=== PATIENT | male | born 1940 | race Caucasian/White ===

== ENCOUNTER 2023-12-21 15:14 | Outpatient (AMB) | payer MEDICARE, SELFPAY ==
--- NOTE | 2023-12-21 15:19 | A.OFFVIS_ITS ---
Intake Visit Reasons: Retention/BPH/Hematuria/Scrotal Swelling Intake Note: Patient is present for RETENTION/BPH/HEMATURIA,SCROTAL SWELLING Urology Medication:NONE Antibiotic Allergy:NONE Blood Thinner:NONE Metal Fabrication Supervisor Required: No Allergies No Known Allergies Allergy (Verified 12/21/23 15:20) HPI Comments Details: Fahad is a pleasant male. He is a patient of . 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 On exam has significant scarring of bilateral epididymis Does report prior trauma in his youth Testicles intact on exam without deformity to overall shape Would operate and debulk scar if he is sufficiently bothered Gross hematuria Apparently has been diagnosed with friable prostate in the past UA positive today Reports component of dysuria Plan for urine culture Start finasteride 4 week follow-up cystoscopy [facility] Medical History (Updated 12/21/23 @ 15:57 by Edward Bardales MD) Pure hypercholesterolemia, unspecified HTN (hypertension) Dysuria Acute osteomyelitis of spine Back pain Enlarged prostate Gross hematuria BPH (benign prostatic hyperplasia) Depression Review of Systems Const Denies chills and Denies fever(s) Card Reports no additional complaints and Denies syncope Resp Denies cough GI Denies abdominal pain and Denies heartburn Reports as per HPI and Denies change in libido Neuro Denies syncope Psych Denies change in libido Endo Denies change in libido Physical Exam Const General: cooperative, healthy appearing, comfortable and no acute distress Orientation/consciousness: patient oriented x3 HEENT Face and sinus: Yes normal facial exam Mouth: moist mucous membranes Neck Neck: Yes normal visual inspection, Yes full ROM and Yes trachea midline Chest Chest palpation & inspection: normal inspection of the chest Resp Effort & Inspection: normal respiratory effort, able to speak in complete sentences and no respiratory distress GI Inspection: Yes normal to inspection Back/Spine/Pelvis Cervical Spine: normal cervical lordosis Thoracic/Lumbar Spine: thoracic and lumbar spine normal to inspection Skin General skin exam: no rashes or lesions noted Neuro General: patient oriented x3, gait normal, tone normal and moves all extremities Extrem General: Yes normal to inspection and Yes capillary refill normal Results AMB Urinalysis, Automated UA Leukoctes 500 Bang/uL Last Edit by JACQUES Contreras on 12/21/23 15:37 UA Nitrite Negative Last Edit by JACQUES Contreras on 12/21/23 15:37 UA Urobilinogen 0.2 mg/dL Last Edit by JACQUES Contreras on 12/21/23 15:3 7 UA Protein 30 mg/dL Last Edit by JACQUES Contreras on 12/21/23 15:37 UA pH 6.0 Last Edit by Oren Jefferson CCM on 12/21/23 15:37 UA Blood 80 Nahid/uL Last Edit by Oren Jefferson [facility] on 12/21/23 15:37 UA Specific [place] 1.015 Last Edit by Oren Jefferson [facility] on 12/21/23 15: 37 UA Ketone Negative Last Edit by JACQUES Contreras on 12/21/23 15:37 UA Bilirubin 0 mg/dL Last Edit by JACQUES Contreras on 12/21/23 15:37 UA Glucose 0 mg/dL Last Edit by Oren Jefferson [facility] on 12/21/23 15:37 Results Reviewed Results Reviewed: Laboratory Last Values Urine pH (Auto) 6.0 12/21/23 15:36 Specific [place] (Auto) 1.015 12/21/23 15:36 Urine Protein (Auto) 30 mg/dL 12/21/23 15:36 Glucose (UA)(Auto) 0 mg/dL 12/21/23 15:36 Urine Ketones (Auto) Negative 12/21/23 15:36 Urine Blood (Auto) 80 Nahid/uL 12/21/23 15:36 Urine Nitrite (Auto) Negative 12/21/23 15:36 Urine Bilirubin (Auto) 0 mg/dL 12/21/23 15:36 Urine Urobilinogen (Auto) 0.2 mg/dL 12/21/23 15:36 Leukocyte Esterase (Auto) 500 Bang/uL 12/21/23 15:36 Assessment & Plan Assessment & Plan (1) Epididymitis: Code(s): N45.1 - Epididymitis Category: Medical (2) BPH (benign prostatic hyperplasia): Code(s): N40.0 - Benign prostatic hyperplasia without lower urinary tract symptoms Category: Medical (3) Gross hematuria: Code(s): R31.0 - Gross hematuria Category: Medical Plan Four week follow-up cysto Orders: Orders AMB Urinalysis Automated Today Z13.9 - Encounter for screening, unspecified Urine Culture Today N39.0 - Urinary tract infection, site not specified Medications: New finasteride 5 mg PO DAILY 90 days 90 tabs 1RF N13.8 - Other obstructive and reflux uropathy, N40.1 - Benign prostatic hyperplasia with lower urinary tract symptoms, R31.0 - Gross hematuria, R33.9 - Retention of urine, unspecified Patient Instructions: Imaging studies, laboratory and physical exam results were discussed and reviewed in detail. No major barriers to patient understanding were identified. An opportunity to ask questions regarding the treatment plan was provided. All questions were answered. The patient expressed understanding and agreement with the above treatment plan. The patient is aware they should contact our office by phone for worsening of their current condition or the appearance of new urologic symptoms. Compliance is encouraged with any medications and followup testing that is ordered. It is a privilege to participate in the urologic care of your patient. If you have any questions or concerns regarding treatment for the above conditions, or other urologic issues, please do not hesitate to contact me. The office tele phone contact is [phone]. This note is constructed using voice recognition software. While every effort has been made to ensure accuracy chemical manager errors may have been included. Yours sincerely, Dr Edward Bardales MD, [facility] - Urology Providers of Expert, Compassionate Care for the Genitourinary System Coding Level of Care Code New Pt Level 4 (57359) Diagnoses Epididymitis N45.1 BPH (benign prostatic hyperplasia) N40.0 Gross hematuria R31.0
== END 2023-12-21 16:09 | disposition home or self-care (01) ==
LOC: HO.HUSH 15:15
PROVIDERS: PCP Nurse Practitioner Family; Visit Provider Urology
DX: N45.1 Epididymitis (principal); N40.0 Benign prostatic hyperplasia without lower urinary tract symptoms; R31.0 Gross hematuria; Z13.9 Encounter for screening, unspecified
CPT/HCPCS: 99204

== ENCOUNTER 2023-12-21 15:14 | Outpatient (REF) | payer MEDICARE, SELFPAY | END 2023-12-21 15:15 | disposition home or self-care (01) | LOC: HO.LAB 15:14 | PROVIDERS: PCP Nurse Practitioner Family; Visit Provider Urology | DX: R39.0 Extravasation of urine (principal); N45.1 Epididymitis; R31.0 Gross hematuria; N40.0 Benign prostatic hyperplasia without lower urinary tract symptoms; N13.8 Other obstructive and reflux uropathy; R33.9 Retention of urine, unspecified; Z79.899 Other long term (current) drug therapy | CPT/HCPCS: 81003; 87086; 99202 ==

== ENCOUNTER 2024-01-25 13:55 | Outpatient (AMB) | payer MEDICARE, SELFPAY ==
--- NOTE | 2024-01-25 14:07 | A.OFFVIS_ITS ---
Intake Visit Reasons: cysto Intake Note: Patient is present for Cystoscopy Urology Medication:FINASTERIDE Antibiotic Allergy:NONE Blood Thinner:NONE Lot:[id number] Exp:12/18/26 Cashier Gambling Required: No Allergies No Known Allergies Allergy (Verified 01/25/24 14:09) HPI Comments Details: Fahad is a pleasant male. He is a patient of . 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 On exam has significant scarring of bilateral epididymis Does report prior trauma in his youth Testicles intact on exam without deformity to overall shape Would operate and debulk scar if he is sufficiently bothered Gross hematuria Apparently has been diagnosed with friable prostate in the past UA positive prior evaluation Reports component of dysuria [facility] Medical History (Updated 12/21/23 @ 15:57 by Edward Bardales MD) Pure hypercholesterolemia, unspecified HTN (hypertension) Dysuria Acute osteomyelitis of spine Back pain Enlarged prostate Gross hematuria BPH (benign prostatic hyperplasia) Depression Review of Systems Const Denies chills and Denies fever(s) Card Reports no additional complaints and Denies syncope Resp Denies cough GI Denies abdominal pain and Denies heartburn Reports as per HPI and Denies change in libido Neuro Denies syncope Psych Denies change in libido Endo Denies change in libido Physical Exam Const General: cooperative, healthy appearing, comfortable and no acute distress Orientation/consciousness: patient oriented x3 HEENT Face and sinus: Yes normal facial exam Mouth: moist mucous membranes Neck Neck: Yes normal visual inspection, Yes full ROM and Yes trachea midline Chest Chest palpation & inspection: normal inspection of the chest Resp Effort & Inspection: normal respiratory effort, able to speak in complete sentences and no respiratory distress GI Inspection: Yes normal to inspection Back/Spine/Pelvis Cervical Spine: normal cervical lordosis Thoracic/Lumbar Spine: thoracic and lumbar spine normal to inspection Skin General skin exam: no rashes or lesions noted Neuro General: patient oriented x3, gait normal, tone normal and moves all extremities Extrem General: Yes normal to inspection and Yes capillary refill normal Office Procedures Cystoscopy Consent Discussed risk and benefit or proposed procedure with the patient. Information consent for procedure given to the patient. Discussed technical aspects, risks, benefits and alternatives in full. Addressed all of the patient's questions and concerns regarding the procedure. The patient demonstrated knowledge and understanding. They wish to proceed with this procedure. Preparation The patient was prepped in the usual manner. A doctorate of chiropractic was present and in the room. Genitalia was prepped with betadine solution in a sterile manner. Lidocaine Jelly 2% was placed into the urethra and 16Fr flexible Olympus cystoscope was inserted into the meatus after adequate lubrication. Procedure Cystoscopy performed using a disposable Urovue digital 16 Syriac cystoscope. 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 Bladder Tumor - [id number] DISPOSABLE SCOPE URO-G FLEXIBLE SCOPE Procedure code (CPT) selection complete Office Meds lidocaine HCl 2 % mucosal jelly in applicator Performing Provider: Edward Bardales MD [facility] [place] [facility] [place] Administered by: Edward Bardales MD on 01/25/24 14:59 Dose Route Admin Location Dispensed Lot Number Expiration Date [facility] Columnist 10 mL intra-urethral 10 mL Results AMB Urinalysis, Automated UA Leukoctes 500 Bang/uL Last Edit by JACQUES Contreras on 01/25/24 14:20 UA Nitrite Negative Last Edit by JACQUES Contreras on 01/25/24 14:20 UA Urobilinogen 0.2 mg/dL Last Edit by JACQUES Contreras on 01/25/24 14:2 0 UA Protein 15 mg/dL Last Edit by JACQUES Contreras on 01/25/24 14:20 UA pH 7.0 Last Edit by JACQUES Contreras on 01/25/24 14:20 UA Blood 10 Nahid/uL Last Edit by JACQUES Contreras on 01/25/24 14:20 UA Specific [place] 1.010 Last Edit by JACQUES Contreras on 01/25/24 14: 20 UA Ketone Negative Last Edit by JACQUES Contreras on 01/25/24 14:20 UA Bilirubin 0 mg/dL Last Edit by JACQUES Contreras on 01/25/24 14:20 UA Glucose 0 mg/dL Last Edit by JACQUES Contreras on 01/25/24 14:20 Results Reviewed Results Reviewed: Laboratory Last Values Urine pH (Auto) 7.0 01/25/24 14:19 Specific [place] (Auto) 1.010 01/25/24 14:19 Urine Protein (Auto) 15 mg/dL 01/25/24 14:19 Glucose (UA)(Auto) 0 mg/dL 01/25/24 14:19 Urine Ketones (Auto) Negative 01/25/24 14:19 Urine Blood (Auto) 10 Nahid/uL 01/25/24 14:19 Urine Nitrite (Auto) Negative 01/25/24 14:19 Urine Bilirubin (Auto) 0 mg/dL 01/25/24 14:19 Urine Urobilinogen (Auto) 0.2 mg/dL 01/25/24 14:19 Leukocyte Esterase (Auto) 500 Bang/uL 01/25/24 14:19 Assessment & Plan Assessment & Plan (1) BPH (benign prostatic hyperplasia): Code(s): N40.0 - Benign prostatic hyperplasia without lower urinary tract symptoms Category: Medical (2) Gross hematuria: Code(s): R31.0 - Gross hematuria Category: Medical Plan Six-month follow-up office Orders: Orders AMB Urinalysis Automated Today Z13.9 - Encounter for screening, unspecified AMB Cystoscopy Today N40.0 - Benign prostatic hyperplasia without lower urinary tract symptoms Medications: New sulfamethoxazole-trimethoprim 400-80 mg (Bactrim) 1 tab PO BEDTIME 90 days 90 tabs 0RF N39.0 - Urinary tract infection, site not specified, N40.0 - Benign prostatic hyperplasia without lower urinary tract symptoms lidocaine HCl 2% 10 mL intra-urethral ONCE 10 mL 0RF N40.0 - Benign prostatic hyperplasia without lower urinary tract symptoms Patient Instructions: Imaging studies, laboratory and physical exam results were discussed and reviewed in detail. No major barriers to patient understanding were identified. An opportunity to ask questions regarding the treatment plan was provided. All questions were answered. The patient expressed understanding and agreement with the above treatment plan. The patient is aware they should contact our office by phone for worsening of their current condition or the appearance of new urologic symptoms. Compliance is encouraged with any medications and followup testing that is ordered. It is a privilege to participate in the urologic care of your patient. If you have any questions or concerns regarding treatment for the above conditions, or other urologic issues, please do not hesitate to contact me. The office telephone contact is [phone]. This note is constructed using voice recognition software. While every effort has been made to ensure accuracy emergency room registered nurse errors may have been included. Yours sincerely, Dr Edward Bardales MD, [facility] - Urology Providers of Expert, Compassionate Care for the Genitourinary System Coding Level of Care Code Est Pt Level 4 (19609) Diagnoses BPH (benign prostatic hyperplasia) N40.0 Gross hematuria R31.0 CPT Codes Cystoscopy - CPT: 27199-Eluoehbnfy ([id number])
--- OUTSIDE RECORDS SUMMARY | 2024-01-26 02:38 | XMS_ITS ---
Author Name [facility] Organization Unknown Assessment and Plan ID Update Date Source Alert Text [employer] - [id number] 30 12/29/2021 [employer] - [id number] COVID Vaccination: This patient has received the PFR, COV-19,mRNA,LNP-S,PF,30-0. 3,Bivalent vaccination on 12/29/2021 with lot number [id number] at [facility]. [employer] - [id number] 08/24/2021 [employer] - [id number] COVID Vaccination: This patient has received the PFR, COV-19,mRNA,LNP-S,PF,30-0. 3,vinay-sucrose vaccination on 08/24/2021 with lot number [id number] at [facility]. [employer] - [id number] [phone] 11/25/2020 [employer] - [id number] COVID Vaccination: This patient has received the PFR, COVID-19, mRNA, LNP-S, PF, 0.3mL vaccination on 11/25/2020 with lot number [id number] at [facility]. [employer] - [id number] [phone] 04/01/2020 [employer] - [id number] COVID Vaccination: This patient has received the PFR, COVID-19, mRNA, LNP-S, PF, 0.3mL vaccination on 04/01/2020 with lot number [id number] at [facility]. [employer] - [id number] [phone] 03/06/2020 [employer] - [id number] COVID Vaccination: This patient has received the PFR, COVID-19, mRNA, LNP-S, PF, 0.3mL vaccination on 03/06/2020 with lot number [id number] at [facility].
== END 2024-01-25 15:27 | disposition home or self-care (01) ==
PROVIDERS: PCP Nurse Practitioner Family; Visit Provider Urology
DX: N40.0 Benign prostatic hyperplasia without lower urinary tract symptoms (principal); R31.0 Gross hematuria; Z13.9 Encounter for screening, unspecified
CPT/HCPCS: 52000; 99214

== ENCOUNTER → 2024-01-25 13:55 | Outpatient (BNVA) | payer MEDICARE, SELFPAY | PROVIDERS: PCP Nurse Practitioner Family; Visit Provider Urology | DX: N40.0 Benign prostatic hyperplasia without lower urinary tract symptoms (principal); R31.0 Gross hematuria; N39.0 Urinary tract infection, site not specified | CPT/HCPCS: 52000; 81003; 99212 ==

== ENCOUNTER 2024-08-10 13:47 | Outpatient (AMB) | payer MEDICARE, SELFPAY ==
--- NOTE | 2024-08-10 13:54 | MHC.OFFVIS ---
Intake Visit Reasons: 6m follow up/ PVR Intake Note: Patient is present for 6M/PVR Urology Medication:FINASTERIDE Antibiotic Allergy:NONE Blood Thinner:NONE Todays PVR:0ML'S Carrier Loader Required: No Allergies No Known Allergies Allergy (Verified 08/10/24 13:55) HPI Comments Details: Fahad is a pleasant male. He is a patient of . 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 On exam has significant scarring of bilateral epididymis Does report prior trauma in his youth Testicles intact on exam without deformity to overall shape Would operate and debulk scar if he is sufficiently bothered Gross hematuria Apparently has been diagnosed with friable prostate in the past UA positive prior evaluation Reports component of dysuria [facility] Medical History (Updated 12/21/23 @ 15:57 by Edward Bardales MD) Pure hypercholesterolemia, unspecified HTN (hypertension) Dysuria Acute osteomyelitis of spine Back pain Enlarged prostate Gross hematuria BPH (benign prostatic hyperplasia) Depression Review of Systems Const Denies chills and Denies fever(s) Card Reports no additional complaints and Denies syncope Resp Denies cough GI Denies abdominal pain and Denies heartburn Reports as per HPI and Denies change in libido Neuro Denies syncope Psych Denies change in libido Endo Denies change in libido Physical Exam Const General: cooperative, healthy appearing, comfortable and no acute distress Orientation/consciousness: patient oriented x3 HEENT Face and sinus: Yes normal facial exam Mouth: moist mucous membranes Neck Neck: Yes normal visual inspection, Yes full ROM and Yes trachea midline Chest Chest palpation & inspection: normal inspection of the chest Resp Effort & Inspection: normal respiratory effort, able to speak in complete sentences and no respiratory distress GI Inspection: Yes normal to inspection Back/Spine/Pelvis Cervical Spine: normal cervical lordosis Thoracic/Lumbar Spine: thoracic and lumbar spine normal to inspection Skin General skin exam: no rashes or lesions noted Neuro General: patient oriented x3, gait normal, tone normal and moves all extremities Extrem General: Yes normal to inspection and Yes capillary refill normal Office Procedures Post Void Residual Post Residual Void Post Void Residual (PVR): 0 [id number] Void Residual by ultrasound Assessment & Plan Assessment & Plan (1) BPH (benign prostatic hyperplasia): Code(s): N40.0 - Benign prostatic hyperplasia without lower urinary tract symptoms Category: Medical Plan We discussed the nature of the decision and reasonable options for performing a prostate intervention. Interventions include TURP, GreenLight laser enucleation of the prostate, GreenLight laser ablation of the prostate, transurethral incision of the prostate, and I-Tend prostate procedure. Options such as medical therapy were discussed. The relative uncertainties and benefits related to each alternate procedure were adequately discussed. General surgical risks including, but not limited to, pain, bleeding, infection, myocardial infarction, pulmonary embolus, deep vein thrombosis and cerebrovascular accident which may result in further hospitalization were discussed. Full disclosure of the procedure as well as all major risks, benefits and complications were discussed including but not limited to damage to the urethra or bladder neck, recurrent BPH, retrograde ejaculation, bladder infection, urge, de jack frequency, incomplete emptying, dysuria, remote chance of erectile dysfunction, epididymitis, and meatal stenosis. The success rate of the procedure was discussed. Success of the procedure in the short-term does not necessarily guarantee that long-term success will be maintained. Suitable follow up will need to be maintained. The patient showed understanding of discussion. An opportunity was provided for questions to be answered and wishes to proceed with the following procedure. - Greenlight laser Orders: Orders AMB Urinalysis Automated Today Z13.9 - Encounter for screening, unspecified Urine Culture Today R31.0 - Gross hematuria Medications: Refilled sulfamethoxazole-trimethoprim 400-80 mg (Bactrim) 1 tab PO BEDTIME 90 tabs 0RF 90 days N39.0 - Urinary tract infection, site not specified, N40.0 - Benign prostatic hyperplasia without lower urinary tract symptoms Patient Instructions: This note is constructed using voice recognition software. While every effort has been made to ensure accuracy corporate counselor errors may have been included. Imaging studies, laboratory and physical exam results were discussed and reviewed in detail. No major barriers to patient understanding were identified. An opportunity to ask questions regarding the treatment plan was provided. All questions were answered. The patient expressed understanding and agreement with the above treatment plan. The patient is aware they should contact our office by phone for worsening of their current condition or the appearance of new urologic symptoms. Compliance is encouraged with any medications and followup testing that is ordered. It is a privilege to participate in the urologic care of your patient. If you have any questions or concerns regarding treatment for the above conditions, or other urologic issues, please do not hesitate to contact me. The office telephone contact is [phone]. Sincerely, Dr Edward Bardales MD, [facility] - Urology Compassionate Specialist Care for the Genitourinary System Coding Level of Care Code Est Pt Level 4 (99313) Diagnoses BPH (benign prostatic hyperplasia) N40.0 CPT Codes Post Residual Void - PVR CPT Code: 36071-Pqku Void Residual by ultrasound ([id number])
== END 2024-08-10 14:31 | disposition home or self-care (01) ==
LOC: HO.HUSH 13:48
PROVIDERS: PCP Nurse Practitioner Family; Visit Provider Urology
DX: N40.0 Benign prostatic hyperplasia without lower urinary tract symptoms (principal); Z13.9 Encounter for screening, unspecified
CPT/HCPCS: 99214

== ENCOUNTER 2024-08-10 13:47 | Outpatient (REF) | payer MEDICARE, SELFPAY | END 2024-08-10 13:48 | disposition home or self-care (01) | LOC: HO.LAB 13:47 | PROVIDERS: PCP Nurse Practitioner Family; Visit Provider Urology | DX: N40.0 Benign prostatic hyperplasia without lower urinary tract symptoms (principal); R31.0 Gross hematuria | CPT/HCPCS: 51798; 81003; 87086; 87088; 99212 ==

== ENCOUNTER 2024-12-03 07:07 | Day surgery (SDC) | payer MEDICARE, SELFPAY ==
--- OUTSIDE RECORDS SUMMARY | 2024-11-05 14:43 | XMS_ITS ---
Encounter Summary Created on: November 05, 2024
--- OUTSIDE RECORDS SUMMARY | 2024-11-05 14:43 | XMS_ITS | Encounter Summary ---
Demographics Address [address] [place] [id number] Mobile Phone Home Phone Work Phone Email Address Preferred Language Colombian Marital Status Single
--- OUTSIDE RECORDS SUMMARY | 2024-11-05 14:45 | XMS_ITS | Encounter Summary ---
Author Organization [facility]
--- OUTSIDE RECORDS SUMMARY | 2024-11-05 14:45 | XMS_ITS ---
Encounter Summary Created on: November 05, 2024 Bladimir Jones
--- NOTE | 2024-11-29 10:17 | HO.ANESPROP2 ---
Documented by User: Toyin Mckenzie NP 11/29/24 10:18 HPI - Anesthesia Eval Consult details Narrative: 84yo M for Laser Ablation Prostate w/Green Light PMFSH Active Problems Active Problems: All Active Problems Epididymitis (Acute) Gross hematuria (Acute) BPH (benign prostatic hyperplasia) (Acute) Past Medical History Medical History Foot drop, right Senile nuclear sclerosis Weakness Sleep apnea Neuropathy Myopia High cholesterol Gout Dysphasia Uses continuous positive airway pressure (CPAP) ventilation at home Colon cancer Chronic pain Arthritis Anxiety Anorectal polyp ADHD Acute cholecystitis Pure hypercholesterolemia, unspecified HTN (hypertension) Dysuria Acute osteomyelitis of spine Back pain Enlarged prostate Gross hematuria BPH (benign prostatic hyperplasia) Depression Surgical History Surgical History History of uvulopalatopharyngoplasty Hx of tonsillectomy Hx of colectomy Hx of nasal septoplasty Hx laparoscopic cholecystectomy Hx of hernia repair Status post LASIK surgery Social History Social History Are you a primary home care attendant to a significant other at home: No Do you presently have visiting nurse or other home services: No Patient Tobacco Use Status: Never used Tobacco Second Hand Smoke Exposure: No Use of substances other than those prescribed or required for medical reasons: No Have you been hit, kicked, punched, or otherwise hurt by someone within the past year? If so, by whom?: No Are you DNR?: No Advance Directives: No Advance Directives Information Provided: Yes Advance Directives on File: No Poor oral hygiene: No Meds Allergies Allergy/AdvReac Type Severity Reaction Status Date / Time acetaminophen Allergy Unknown Verified 11/29/24 09:11 ampicillin Allergy Rash Verified 11/29/24 09:11 Home Medications ?Medication ?Instructions ?Recorded ?Confirmed ?Last Taken ?Type allopurinol 300 mg tablet 300 mg PO DAILY 11/29/24 11/29/24 Unknown History amlodipine 10 mg tablet 10 mg PO DAILY 11/29/24 11/29/24 12/03/24 History clonidine HCl 0.3 mg tablet 0.3 mg PO BID 11/29/24 11/29/24 Unknown History dextroamphetamine-amphetamine 15 1 tab PO BID 11/29/24 11/29/24 Unknown History mg tablet escitalopram oxalate 20 mg tablet 30 mg PO QAM 11/29/24 11/29/24 Unknown History fluticasone propionate 50 1 spray intranasal DAILY 11/29/24 11/29/24 Unknown History mcg/actuation nasal spray,suspension gabapentin 100 mg capsule 100 - 300 mg PO BEDTIME PRN 11/29/24 11/29/24 12/03/24 History insomnia lisinopril 40 mg tablet 40 mg PO DAILY 11/29/24 11/29/24 Unknown History lorazepam 1 mg tablet 1 mg PO BID PRN Anxiety 11/29/24 11/29/24 Unknown History lovastatin 40 mg tablet 40 mg PO BEDTIME 11/29/24 11/29/24 Unknown History metoprolol succinate 50 mg 50 mg PO DAILY 11/29/24 11/29/24 12/03/24 History tablet,extended release 24 hr tamsulosin 0.4 mg capsule 0.4 mg PO DAILY 11/29/24 11/29/24 Unknown History Exam Height,Weight and Vital Signs: Weight 96.5 kg Assessment and Plan Assessment Anesthesia Assessment: Chart Reviewed Documented by User: Jeri Ugalde MD 12/03/24 07:36 PMFSH Past Medical History Medical History Foot drop, right Senile nuclear sclerosis Weakness Sleep apnea Neuropathy Myopia High cholesterol Gout Dysphasia Uses continuous positive airway pressure (CPAP) ventilation at home Colon cancer Chronic pain Arthritis Anxiety Anorectal polyp ADHD Acute cholecystitis Pure hypercholesterolemia, unspecified HTN (hypertension) Dysuria Acute osteomyelitis of spine Back pain Enlarged prostate Gross hematuria BPH (benign prostatic hyperplasia) Depression Family History Family history of problems with anesthesia: No Surgical History Surgical History History of uvulopalatopharyngoplasty Hx of tonsillectomy Hx of colectomy Hx of nasal septoplasty Hx laparoscopic cholecystectomy Hx of hernia repair Status post LASIK surgery History of Problems with Anesthesia: No Social History Social History Are you a primary home care attendant to a significant other at home: No Do you presently have visiting nurse or other home services: No Patient Tobacco Use Status: Never used Tobacco Second Hand Smoke Exposure: No Use of substances other than those prescribed or required for medical reasons: No Have you been hit, kicked, punched, or otherwise hurt by someone within the past year? If so, by whom?: No Are you DNR?: No Advance Directives: No Advance Directives Information Provided: Yes Advance Directives on File: No Poor oral hygiene: No Meds Allergies Allergy/AdvReac Type Severity Reaction Status Date / Time acetaminophen Allergy Unknown Verified 11/29/24 09:11 ampicillin Allergy Rash Verified 11/29/24 09:11 Home Medications ?Medication ?Instructions ?Recorded ?Confirmed ?Last Taken ?Type allopurinol 300 mg tablet 300 mg PO DAILY 11/29/24 11/29/24 Unknown History amlodipine 10 mg tablet 10 mg PO DAILY 11/29/24 11/29/24 12/03/24 History clonidine HCl 0.3 mg tablet 0.3 mg PO BID 11/29/24 11/29/24 Unknown History dextroamphetamine-amphetamine 15 1 tab PO BID 11/29/24 11/29/24 Unknown History mg tablet escitalopram oxalate 20 mg tablet 30 mg PO QAM 11/29/24 11/29/24 Unknown History fluticasone propionate 50 1 spray intranasal DAILY 11/29/24 11/29/24 Unknown History mcg/actuation nasal spray,suspension gabapentin 100 mg capsule 100 - 300 mg PO BEDTIME PRN 11/29/24 11/29/24 12/03/24 History insomnia lisinopril 40 mg tablet 40 mg PO DAILY 11/29/24 11/29/24 Unknown History lorazepam 1 mg tablet 1 mg PO BID PRN Anxiety 11/29/24 11/29/24 Unknown History lovastatin 40 mg tablet 40 mg PO BEDTIME 11/29/24 11/29/24 Unknown History metoprolol succinate 50 mg 50 mg PO DAILY 11/29/24 11/29/2412/03/25 History tablet,extended release 24 hr tamsulosin 0.4 mg capsule 0.4 mg PO DAILY 11/29/24 11/29/24 Unknown History Exam Airway Mallampati Class: II TM Dist: >3cm Neck ROM: Limited Heart: rrr Lungs: cta Assessment and Plan Assessment Anesthesia Assessment: Anesthesia Plan Discussed Final Anesthetic Review Family History of Problems with Anesthesia: No History of Problems with Anesthesia: No NPO: Yes ASA Class: II Final Preanesthetic Review: No Changes in Pt Med Stat, Meds/Allgs Chart Reviewed, Consent Obtained/Reviewed and Anes Risks/Benef Reviewed Patient Risk: Intermediate Procedure Risk: Intermediate Anesthetic Plan Anesthetic Plan: GA and Agree w/ Assess. and Plan Disposition: Standard PACU
[2024-12-03] VITALS (7 sets, daily range): BP systolic 90–124; BP diastolic 56–66; PULSE 54–64; RESP 12–18; TEMP 36.1; O2SAT 95–98; BMI 28.9
[2024-12-03] MEDS: Lactated Ringers 1,000 ML 100 ML IVCONT (07:42)
--- NOTE | 2024-12-03 07:45 | MHC.SHP ---
Pre-Procedural Eval Section A - 24 Hr Update-Section A only Date of Service: 12/03/24 The patient is an INPATIENT: No Changes since office visit: No Cold of Flu in the past 2 weeks, No New Medical Problems, No Changes in Medication and No Patient answered all questions The patient has been examined within 24 hours of the surgical procedure. The History & Physical has been completed within 30 days and I have reviewed it.: No Section B - Complete if H&P > 30 days Chief Complaint: Benign prostatic hyperplasia without lower urinary Details of Present Illness: Friable prostate hypertrophy. GreenLight laser prostatectomy Relevant Family History (Specify if Yes): No Relevant Social History: None Present Medications: see Short Stay Collaborative assessment Medical History: No relevant PMH History of Previous Operations: No relevant previous surgery Allergies: Allergies Allergy/AdvReac Type Severity Reaction Status Date / Time acetaminophen Allergy Unknown Verified 11/29/24 09:11 ampicillin Allergy Rash Verified 11/29/24 09:11 Review of Systems Sugical H&P ROS: Negative: Constitution, Cardiovascular, Respiratory, Neurological, Psychiatric, Hem-Onc, Allergic/Immunologic, Gastrointestinal, Genitourinary, Musculoskeletal, Integumentary, Endocrine and Eyes/Ears/Nose/Throat Exam Surgical H&P Exam: Normal: HEENT, Normal: Heart, Normal: Lungs, Normal: Extremities, Normal: Abdomen, Normal: Skin and Normal: Neurological Plan Diagnosis/Plan: Unchanged I have reviewed the history and physical and performed a pertinent physical examination on my patient. No changes have occurred unless specified. Time Spent With Patient Time: Total time managing care of this patient today ____ minutes.
--- NOTE | 2024-12-03 10:53 | P.OP_ITS ---
Operative Note Operative Note Date of Service: 12/03/24 Narrative: PreOperative Diagnosis: Bladder outlet obstruction Post Operative Diagnosis: Bladder outlet obstruction Procedure: GreenLight Laser Enucleation of the prostate CPT 35270 - modifier 22 - 100% longer than typical with over 50 minutes of lasering time Surgeon: Dr Edward Bardales Anesthesia: General History of bladder outlet obstruction. Prior history of enlarged prostate. Gross hematuria recurrent. Urinary tract infection with incomplete emptying. On cystoscopy found to have significant bilobar hypertrophy with injected mucosa. Responded to three-month low-dose antibiotics and finasteride. Recommendation for prostate procedure with laser enucleation of prostate. Risks and benefits have been discussed. Focus was placed on development of retrograde ejaculation which is a normal part of this procedure. Published revision rates are approximately 30-50% at 8-10 years following the procedure. Procedure: After informed consent was verified the patient was brought to the operating room and placed in a supine position. Anesthesia was administered per protocol. Patient was placed in modified dorsal lithotomy position and prepped and draped in a sterile fashion. Safety pause time-out was confirmed. Antibiotics have been given. A Twenty-four Monegasque laser cystoscope was inserted per urethra. No abnormalities were found of the anterior and bulbar urethra. The prostatic urethra shows significant bilobar lateral lobe crowding with long urethra. The bladder was examined and both ureteric orifices were seen in their normal positions away from the area of interest. Bladder trabeculation grade 1 with over distention. Mucous found at base of bladder and emptied consistent with incomplete emptying. Minimal median lobe. Impingement greater from left side than right side. A GreenLight laser with attached pressure bag Normal Saline cooling irrigation was used. With initial setting of 80 w decision was made to start with the left lateral lobe and work our way along the 05:00 groove with the left lateral lobe to the m edian area. This was developed in order to try to create some type of space within the prostatic fossa. The incision was taken down from the bladder neck down to the area just proximal of the veru. This was gradually deepened in order to define the lateral aspects of the median area and separate the lateral lobe areas from the median lobe.. The deep boundary of enucleation was defined by the prostate surgical capsule. Once clearly defined the grooves were extended in the lateral directions in order to create a deep groove and begin to undermined the lateral lobe areas. Patient with noted to have significant ooze from the mucosa of the prostate. A single dose of tranexamic acid was given. This helped considerably. With the laser power increased to 120 w and since the median lobe was so large we started with ablating and enucleated gradually up the first portion of the sidewall. This was performed in order to create more working space. Once the working space had been created the laser fiber was placed at the 1 o'clock position and a secondary groove was developed down to the level of prostatic capsule. The creation of a second deep groove defined a segment of intervening tissue similar to a slice of orange. At the apex of the prostate the laser was used to vertically link the two grooves releasing the intervening tissue and creating a segment of tissue. The tissue was initially ablated and enucleated using a series of secondary slices running at the 02:00, 03:00 and 04:00 positions. This created a number of slice areas that were then removed coming from the 05:00 and undermining the slices and coming from the 01:00 position. Gradually the lateral tissue was removed. Once the bulk with the tissue had been removed the area was then resurfaced running from the 5 o'clock position up the curve of the prostate to the 1 o'clock position. A similar procedure was repeated on the patient's right-hand side. The only differences being the position of the lateral groove at the 7 o'clock position and the secondary groove at the 11 o'clock position, Otherwise the procedure was developed in a mirror fashion. After the majority of tissue had been debulked remnant tissue was ablated with the side fire laser and the curve of the prostate followed up each side wall clearly defining the anterior remnant strip that remained between the 11 and 1 o'clock positions. In this case the anterior tissue protruded into the prostatic fossa and was partially ablated with the laser. There was significant tissue and tissue boundaries were worked from both the 01:00 and 11:00 positions running to the 12 o'clock position tissue was also ablated from the 12 o'clock position directly back. Great care was taken not to go too deeply to involve any of the venous plexus and to avoid the prosthetic sphincter. At completion debris and pieces of prostate were removed from the bladder with irrigation. Both ureteric orifices were reviewed again in shown to be patent in away from any areas of energy damage. The apical area was reviewed and any stray mucosal ooze was controlled. A 22 Monegasque 30 cc balloon Mary catheter was placed into the bladder using a flexible stylet. Clear efflux was obtained upon irrigation with a Corry piston syringe. 50 cc was placed in the balloon and gentle traction was placed. A snap was used to hold tension on the catheter to control bleeding during patient moved and transported. A drainage bag was placed. A belladonna and opiate suppository was placed in order to assist in postprocedure pain management. Once transportation is complete to the PACU the snap will be removed. The patient tolerated the procedure well, he was extubated in the operating and transferred in a stable condition to the recovery area. Total Power 400 kJ Lasing time 52:25 - total procedure paul 75 min Pathology: Prostate tissue Drains: Mary catheter
== END 2024-12-03 12:26 | disposition home or self-care (01) ==
PROVIDERS: PCP Pediatrics; Visit Provider Urology
PROC: (CPT 52648; principal; 2024-12-03 09:00)
DX: N40.1 Benign prostatic hyperplasia with lower urinary tract symptoms (principal); N13.8 Other obstructive and reflux uropathy; N02.9 Recurrent and persistent hematuria with unspecified morphologic changes; R39.14 Feeling of incomplete bladder emptying; R30.0 Dysuria; G47.33 Obstructive sleep apnea (adult) (pediatric); I10 Essential (primary) hypertension; E78.00 Pure hypercholesterolemia, unspecified; M46.20 Osteomyelitis of vertebra, site unspecified; Z79.899 Other long term (current) drug therapy
CPT/HCPCS: 52649; 88305; J1100; J1596; J1956; J2003; J2151; J2405; J2704; J3010

== ENCOUNTER → 2024-12-03 07:07 | Outpatient (BNV) | payer MEDICARE, SELFPAY | PROVIDERS: PCP Pediatrics; Visit Provider Urology | DX: N32.0 Bladder-neck obstruction (principal) | CPT/HCPCS: 52649 ==

== ENCOUNTER → 2024-12-05 08:42 | Outpatient (BNVA) | payer MEDICARE, SELFPAY | PROVIDERS: PCP Nurse Practitioner Family; Visit Provider Urology | DX: Z48.816 Encounter for surgical aftercare following surgery on the genitourinary system (principal); N40.0 Benign prostatic hyperplasia without lower urinary tract symptoms | CPT/HCPCS: 51700; 51798 ==